=== PATIENT | female | born 1975 | race Caucasian/White ===

== ENCOUNTER 2016-10-18 14:03 | Emergency (ER) | payer MEDICAID, OTHER ==
[~2016-10-18] VITALS: Ht 154.9 cm; Wt 69.0 kg
[~2016-10-18 14:03] MED LIST: DICY10CA60 PO; DICY20TA59 PO; DOCU-144 PO; HYDR-902 PO; ONDA4TAB14 PO; POLY17PO6 PO; RANI150T9 PO
[2016-10-18 14:11] VITALS: Ht 154.9 cm; Wt 69.0 kg
--- NOTE | 2016-10-18 17:22 | ERD ---
ER Documentation Chief Complaint Date/Time DATE: 10/18/16 TIME: 17:20 Chief Complaint UPPER BACK PAIN X 3 DAYS, NO INJURY HPI 41-year-old female otherwise healthy complains of upper back pain on the right side for the past 3 days. He is she describes as sharp, radiating to her chest , worse with any deep breaths in or out. She tried taking ibuprofen without much relief. She has not had any fevers, chills, cough. Denies hemoptysis. Denies exogenous steroid use, recent travel, immobilization, history of malignancies, or pulmonary embolus. ROS All systems reviewed and are negative except as per history of present illness. Medications Home Meds Active Scripts Ibuprofen* (Motrin*) 600 Mg Tab, 600 MG PO Q6, #30 TAB Prov:TAHIRA PACHECO PA-C 10/18/16 Cyclobenzaprine Hcl* (Cyclobenzaprine Hcl*) 5 Mg Tablet, 5 MG PO Q8H Y for PAIN , #15 TAB Prov:TAHIRA PACHECO PA-C 10/18/16 Docusate Sodium* (Colace*) 100 Mg Capsule, 100 MG PO BID Y for CONSTIPATION, # 30 CAP Prov:DARREL MOYA MD 12/27/15 Dicyclomine Hcl* (Bentyl*) 10 Mg Capsule, 10 MG PO QID Y for abdominal cramping , #30 CAP Prov:DARREL MOYA MD 12/27/15 Ondansetron (Ondansetron Odt) 4 Mg Tab.rapdis, 4 MG PO Q6H Y for NAUSEA AND/OR VOMITING, #30 TAB Prov:DARREL MOYA MD 12/27/15 Polyethylene Glycol* (Miralax*) 17 Gm Powd.pack, 17 GM PO DAILY, #7 Prov:NADEGE SALES MD 12/27/15 Hydrocodone/Acetaminophen ([place] 10-325 Tablet) 1 Each Tablet, 1 TAB PO Q6H Y for PAIN, #12 TAB Prov:RICHMOND TERRY DO 12/27/15 Dicyclomine Hcl* (Bentyl*) 20 Mg Tablet, 20 MG PO QID, #20 TAB Prov:RICHMOND TERRY DO 12/27/15 Ranitidine Hcl* (Zantac*) 150 Mg Tablet, 150 MG PO BID Y for EPIGASTRIC PAIN, # 30 TAB Prov:RICHMOND TERRY DO 12/27/15 Allergies Allergies: Coded Allergies: dipyrone (Verified Allergy, Unknown, 12/27/15) PMhx/Soc Medical and Surgical Hx: pt denies Medical Hx, pt denies Surgical Hx History of Surgery: No Anesthesia Reaction: No Hx Neurological Disorder: No Hx Respiratory Disorders: No Hx Cardiac Disorders: No Hx Psychiatric Problems: No Hx Miscellaneous Medical Probl: No Hx Alcohol Use: No Hx Substance Use: No Hx Tobacco Use: No Smoking Status: Never smoker Physical Exam Vitals Vital Signs Date Time Temp Pulse Resp B/P Pulse Ox O2 Delivery O2 Flow Rate FiO2 10/18/16 14:11 98.4 101 18 134/91 100 Physical Exam General: Well-developed, well-nourished. The patient appears in no acute distress. HEENT: Head is normocephalic, atraumatic. No scleral icterus. Neck: Supple. Nontender. Lungs: Clear to auscultation. Normal air movement. Reproducible pain with palpation in the right upper back Heart: Regular rate and rhythm. S1 and S2 are normal. No murmurs, gallops, or rubs. Abdomen: Soft, nontender, nondistended. Bowel sounds are normoactive. Extremities: No clubbing or cyanosis. Normal pulses. Moving extremities x 4. No weakness. Neurologic: Alert and oriented 3. No focal deficits. Skin: Normal turgor. No rash or lesions. Result Diagram: 10/18/16 1723 10/18/16 1723 Results 24 hrs Laboratory Tests Test 10/18/16 17:23 White Blood Count 8.310^3/ul Red Blood Count 4.6310^6/ul Hemoglobin 13.2g/dl Hematocrit 40.7% Mean Corpuscular Volume 87.9fl Mean Corpuscular Hemoglobin 28.5pg Mean Corpuscular Hemoglobin Concent 32.4g/dl Red Cell Distribution Width 13.2% Platelet Count 10639^3/UL Mean Platelet Volume 10.3fl Neutrophils % 66.3% Lymphocytes % 22.6% Monocytes % 8.6% Eosinophils % 1.7% Basophils % 0.6% Nucleated Red Blood Cells % 0.0/100WBC Neutrophils # 5.510^3/ul Lymphocytes # 1.910^3/ul Monocytes # 0.710^3/ul Eosinophils # 0.110^3/ul Basophils # 0.110^3/ul Nucleated Red Blood Cells # 0.010^3/ul D-Dimer 241.74ng/ml D-Dimer Comment Urine Color YELLOW Urine Clarity CLEAR Urine pH 7.0 Urine Specific [place] 1.017 Urine Ketones NEGATIVEmg/dL Urine Nitrite NEGATIVEmg/dL Urine Bilirubin NEGATIVEmg/dL Urine Urobilinogen NEGATIVEmg/dL Urine Leukocyte Esterase NEGATIVELeu/ul Urine Hemoglobin NEGATIVEmg/dL Urine Glucose NEGATIVEmg/dL Urine Total Protein NEGATIVEmg/dl Sodium Level 143mmol/L Potassium Level 4.0mmol/L Chloride Level 101mmol/L Carbon Dioxide Level 28mmol/L Anion Gap 18 Blood Urea Nitrogen 12mg/dl Creatinine 0.80mg/dl Glucose Level 85mg/dl Calcium Level 9.2mg/dl Current Medications Medications (Trade) Dose Ordered Sig/Dee Route PRN Reason Start Time Stop Time Status Last Admin Dose Admin Diazepam (Valium) 2.5 mg ONCE ONCE PO 10/18/16 18:30 10/18/16 18:31 DC 10/18/16 18:10 Procedures/MDM ED course: 12-lead EKG(interpreted by supervising physician): Dr. Fletcher Rate/Rhythm: Normal Sinus Rhythm, rate of 70 QRS, ST, T-waves: No changes consistent w/ acute ischemia, no intervals, no dysrhythmias, no ectopy Impression: No evidence of ischemia or arrhythmia DIAGNOSTIC IMAGING REPORT Patient: SHEILA POLANCO : 1975 Age: 41 Sex: F MR #: [id number] DOS: 10/18/16 1650 Ordering MD: TAHIRA PACHECO PA-C Location: FT Room/Bed: PROCEDURE: XR, Chest. CLINICAL INDICATION: Cough/abdomen pain. TECHNIQUE: AP chest COMPARISON: None available. FINDINGS: There is no acute infiltrate in the lungs. No pleural effusion. The heart is not enlarged. IMPRESSION: 1. Unremarkable chest x-ray. RPTAT: GG .Keyon Sahni MD, Date Time Electronically viewed and signed by .Keyon Sahni MD, MD on 10/18/2016 19:58 .Y/ CC: TAHIRA PACHECO PA-C Medical decision making: This 41 year female comes in with upper back pain, chest pain for the past 3 days. Patient's workup today is negative, electrolytes normal, negative white count, chest x-ray is normal, EKG is normal and d-dimer was negative. No evidence of pulmonary embolus, doubt dissection, acute coronary syndrome. Patient's symptoms appear to be musculoskeletal, improving with Valium in the emergency department. Departure Diagnosis: Primary Impression: Back pain Condition: Good TAHIRA PACHECO PA-C Oct 18, 2016 17:22
[2016-10-18 17:34] LABS: WHITE BLOOD COUNT 8.3 10^3/ul (4.8-10.8)
[2016-10-18 17:35] LABS: BASOPHIL # 0.1 10^3/ul (0.0-0.1); BASOPHILS % 0.6 % (0.0-2.0); EOSINOPHILS # 0.1 10^3/ul (0.0-0.5); EOSINOPHILS % 1.7 % (0.0-7.0); HEMATOCRIT 40.7 % (37.0-47.0); HEMOGLOBIN 13.2 g/dl (12.0-16.0); LYMPHOCYTES # 1.9 10^3/ul (0.8-2.9); LYMPHOCYTES % 22.6 % (15.0-51.0); MEAN CORPUSCULAR HEMOGLOBIN 28.5 pg (29.0-33.0); MEAN CORPUSCULAR HGB CONC 32.4 g/dl (32.0-37.0); MEAN CORPUSCULAR VOLUME 87.9 fl (82.0-101.0); MEAN PLATELET VOLUME 10.3 fl (7.4-10.4); MONOCYTE # 0.7 10^3/ul (0.3-0.9); MONOCYTES % 8.6 % (0.0-11.0); NEUTROPHIL # 5.5 10^3/ul (1.6-7.5); NEUTROPHILS % 66.3 % (39.0-77.0); PLATELET COUNT 288 10^3/UL (140-415); RED BLOOD COUNT 4.63 10^6/ul (4.20-5.40); RED CELL DISTRIBUTION WIDTH 13.2 % (11.5-14.5)
[2016-10-18 17:36] LABS: ADD UMIC NO; UR ASCORBIC ACID NEGATIVE (NEGATIVE); UR BILIRUBIN (Dip) NEGATIVE (NEGATIVE); UR BLOOD (Dip) NEGATIVE (NEGATIVE); UR CLARITY CLEAR (CLEAR); UR COLOR YELLOW (YELLOW); UR GLUCOSE (Dip) NEGATIVE (NEGATIVE); UR KETONES (Dip) NEGATIVE (NEGATIVE); UR LEUKOCYTE ESTERASE (Dip) NEGATIVE Leu/ul (NEGATIVE); UR NITRITE (Dip) NEGATIVE (NEGATIVE); UR SPECIFIC GRAVITY (Dip) 1.017 (1.003-1.030); UR TOTAL PROTEIN (Dip) NEGATIVE (NEGATIVE); UR UROBILINOGEN (Dip) NEGATIVE (NEGATIVE)
[2016-10-18 17:52] LABS: CALCIUM 9.2 mg/dl (8.4-10.2); CREATININE 0.8 mg/dl (0.44-1.00)
[2016-10-18 17:53] LABS: D-DIMER 241.74 ng/ml (<460)
[2016-10-18] MEDS ORDERED: DIAZEPAM 5 MG TAB PO ONE (18:30)
--- NOTE | 2016-10-18 19:58 | RADRPT ---
PROCEDURE: XR, Chest. CLINICAL INDICATION: Cough/abdomen pain. TECHNIQUE: AP chest COMPARISON: None available. FINDINGS: There is no acute infiltrate in the lungs. No pleural effusion. The heart is not enlarged. IMPRESSION: 1. Unremarkable chest x-ray. RPTAT: GG .Keyon Sahni MD, Date Time Electronically viewed and signed by .Keyon Sahni MD, on 10/18/2016 19:58 .Y/
[2016-10-18] MEDS ORDERED: IBUP-1542 PO (20:06)
[2016-10-18] MEDS ORDERED: CYCL5TAB PO (20:06)
== END 2016-10-18 20:46 | disposition home or self-care (01) ==
LOC: FTE 14:03
DX: M54.6 Pain in thoracic spine (principal)
CPT/HCPCS: 71010; 80048; 81003; 85025; 85378; 93005; Z7610; 36415

== ENCOUNTER 2017-03-04 15:50 | Emergency (ER) | payer OTHER ==
[~2017-03-04] VITALS: Ht 157.5 cm; Wt 68.1 kg
[~2017-03-04 15:50] MED LIST changes: +CYCL5TAB PO; +IBUP-1542 PO
[2017-03-04 16:02] VITALS: Ht 157.5 cm; Wt 68.1 kg
--- NOTE | 2017-03-04 17:00 | ERD ---
ER Documentation Chief Complaint Chief Complaint Complains of chest congestion, cough and sorethroat x 3 days HPI 41-year-old female, previously healthy, presents to the emergency department complaining of worsening of upper respiratory symptoms for the last 3 days. The symptoms include productive cough, sore throat, subjective fever, generalized arthralgia and general malaise. The patient has been taking over- the-counter medication without improvement of her symptoms. Denies chills, shortness of breath, chest pain. ROS A 12-point review of systems was performed and negative other than presented in the history of present illness. SYSTEMIC symptoms: Subjective fever, no chills, no night sweats, no weight loss EYE symptoms: No blurred vision, no eye discharge OTOLARYNGEAL symptoms: No hearing loss. No ear pain, no sore throat CARDIOVASCULAR symptoms: No chest pain or discomfort, no palpitations. PULMONARY symptoms: No dyspnea, productive cough, no wheezing. GASTROINTESTINAL symptoms: No abdominal pain, no nausea, no vomiting, no diarrhea MUSCULOSKELETAL symptoms: + arthralgias, +muscle aches. NEUROLOGY symptoms: No confusion, no syncope, no numbness or tingling. SKIN: No rashes Medications Home Meds Active Scripts Ibuprofen* (Motrin*) 600 Mg Tab, 600 MG PO Q6H Y for PAIN AND OR ELEVATED TEMP, #30 TAB Prov:RIKI RICK MD 03/04/17 Promethazine HCl/Codeine (Prometh-Codein 6.25-10 mg/5 ml) 5 Ml Syrup, 5 ML PO QHS for COUGH for 5 Days, #120 ML Prov:RIKI RICK MD 03/04/17 Azithromycin* (Zithromax*) 250 Mg Tablet, 250 MG PO .ZPACK DIRECTED, #6 TAB TAKE 500 MG (2 TABS) THE FIRST DAY THEN 250 MG (1 TAB) DAYS 2-5 Prov:RIKI RICK MD 03/04/17 Ibuprofen* (Motrin*) 600 Mg Tab, 600 MG PO Q6, #30 TAB Prov:TAHIRA PACHECO PA-C 10/18/16 Cyclobenzaprine Hcl* (Cyclobenzaprine Hcl*) 5 Mg Tablet, 5 MG PO Q8H Y for PAIN , #15 TAB Prov:TAHIRA PACHECO PA-C 10/18/16 Docusate Sodium* (Colace*) 100 Mg Capsule, 100 MG PO BID Y for CONSTIPATION, # 30 CAP Prov:DARREL MOYA MD 12/27/15 Dicyclomine Hcl* (Bentyl*) 10 Mg Capsule, 10 MG PO QID Y for abdominal cramping , #30 CAP Prov:DARREL MOYA MD 12/27/15 Ondansetron (Ondansetron Odt) 4 Mg Tab.rapdis, 4 MG PO Q6H Y for NAUSEA AND/OR VOMITING, #30 TAB Prov:DARREL MOYA MD 12/27/15 Polyethylene Glycol* (Miralax*) 17 Gm Powd.pack, 17 GM PO DAILY, #7 Prov:NADEGE SALES MD 12/27/15 Hydrocodone/Acetaminophen ([place] 10-325 Tablet) 1 Each Tablet, 1 TAB PO Q6H Y for PAIN, #12 TAB Prov:RICHMOND TERRY DO 12/27/15 Dicyclomine Hcl* (Bentyl*) 20 Mg Tablet, 20 MG PO QID, #20 TAB Prov:RICHMOND TERRY DO 12/27/15 Ranitidine Hcl* (Zantac*) 150 Mg Tablet, 150 MG PO BID Y for EPIGASTRIC PAIN, # 30 TAB Prov:RICHMOND TERRY DO 12/27/15 Allergies Allergies: Coded Allergies: dipyrone (Verified Allergy, Unknown, 12/27/15) PMhx/Soc History of Surgery: No Anesthesia Reaction: No Hx Neurological Disorder: No Hx Respiratory Disorders: No Hx Cardiac Disorders: No Hx Psychiatric Problems: No Hx Miscellaneous Medical Probl: No Hx Alcohol Use: No Hx Substance Use: No Hx Tobacco Use: No Physical Exam Vitals Vital Signs Date Time Temp Pulse Resp B/P Pulse Ox O2 Delivery O2 Flow Rate FiO2 03/04/17 16:02 98.5 100 20 153/79 98 Physical Exam Patient is in no acute distress, vital signs stable. Alert and fully oriented. EYES: PERRLA, EOMI, Sclera and conjunctiva appear normal. EARS: Canals clear, tympanic membranes WNL THROAT: Erythematous oropharynx. NECK: Supple, No lymphadenopathy. Full ROM without pain or tenderness. HEART: RRR, no rubs, murmurs, clicks or gallops. LUNGS: Bilateral rhonchi ABDOMEN: Soft, non-tender without masses or hepatosplenomegaly. EXTREMITIES: No edema bilaterally. BACK: Full ROM, no deformity, normal back exam NEURO: Cranial nerves grossly intact, no motor or sensory deficit Procedures/MDM 41-year-old female, previously healthy, presents to the emergency department complaining of worsening of upper respiratory symptoms for 3 days. Vital signs stable, Physical exam revealed erythematous oropharynx and bilateral rhonchi. Differential diagnosis include but not limited to: Respiratory infection bacterial/viral/fungal. Asthma/COPD, pneumonitis, allergies, GERD. Less likely pulmonary embolism, foreign body aspiration, cardiac related, aspiration pneumonia, malignancy. Physical examination and clinical presentation consistent most likely with upper respiratory infection, most likely viral, therefore, antibiotics not indicated at this time. However, the patient is requesting a prescription for antibiotics.. During the ED course the patient remained stable, no new complaints. Results and clinical impression discussed with patient who agrees with management. The patient is stable to be treated outpatient and will be discharged home with a Rx for azithromycin, promethazine with codeine and ibuprofen, some side effects of prescribed medications (headache, rash, nausea, vomiting, diarrhea, drowsiness, habituation, bleeding, hypertension, interactions with other medications) were reviewed. The patient was instructed to follow up with the primary care provider in the next 48h. If symptoms persist, worsen or new symptoms develop, then patient should return to the ED immediately. Instructions explained and given directly by me to the patient in Yoruba with acknowledgment and demonstrated understanding. Disclaimer: Inadvertent spelling and grammatical errors are likely due to EHR/ dictation software use and do not reflect on the overall quality of patient care. Also, please note that the electronic time recorded on this note does not necessarily reflect the actual time of the patient encounter. Departure Diagnosis: Primary Impression: Cough productive of purulent sputum Condition: Stable Additional Instructions: Muchas addi por [facility] para rocha servicio. Esperamos que en rocha visita a la ethan de emergencia rocha problema medico haya sido solucionado y que se sienta mucho mejor. Para estar seguros que rocha mejoria sigue en proceso, le pedimos el favor de hacer rafaela lobito de seguimiento medico con rocha doctor primario en los proximos 2-4 roth. Lleve con usted estos documentos y las medicinas recetadas. Si padma sintomas empeoran y no puede saadia a rocha doctor, por favor regrese a ethan de emergencia. En uma que usted no tenga un mdico de atencin primaria: Llame al mdico o clnica comunitaria de referencia que aparece abajo mylene las horas de consultorio para hacer rafaela lobito para que le vean. CLINICAS: [place] [id number] [phone] [facility] [phone] [facility] [phone] [place] [id number] [phone] [place] [id number] [phone] [facility]. [phone] RIKI PÉREZ MD Mar 04, 2017 17:00
[2017-03-04] MEDS ORDERED: PROM5SYR2 PO (17:03)
[2017-03-04] MEDS ORDERED: AZIT250T94 PO (17:03)
[2017-03-04] MEDS ORDERED: IBUP-1542 PO (17:03)
== END 2017-03-04 17:14 | disposition home or self-care (01) ==
LOC: FTE 15:50
DX: J39.2 Other diseases of pharynx (principal)
CPT/HCPCS: 99284